=== PATIENT | male | born 1960 | race Caucasian/White ===

== ENCOUNTER → 2022-11-15 | Outpatient (CLI) | payer BC, SELFPAY ==
--- NOTE | 2022-11-15 10:30 | RAD_ITS ---
STUDY: X-RAY - ORBITS REASON FOR EXAM: Male, 61 years old. HX METAL TO EYE PRE MRI TECHNIQUE: 2 view(s) of the orbits were obtained. COMPARISON: None. FINDINGS: Normal bilateral orbits without a metallic orbital foreign body. Normal visualized facial bones. Normal paranasal sinuses. The soft tissue structures are unremarkable. RAD/Orbits for Foreign Body IMPRESSION: No demonstrated metallic orbital foreign body. The patient is cleared for an MRI examination. Electronically Signed: Kris Campos MD at 10:45 EDT ,
--- NOTE | 2022-11-15 13:33 | MRI_ITS ---
STUDY: MRI BRAIN WITHOUT CONTRAST (ATTENTION INTERNAL AUDITORY CANALS - I.A.C.''s) REASON FOR EXAM: Male, 61 years old. ASYMMETRIC RT HEARING LOSS TECHNIQUE: Standardized multiplanar fat and water weighted pulse sequences were obtained. COMPARISON: None. FINDINGS: Normal bilateral internal auditory canals. There is no demonstrated intracanalicular or cisternal vestibular schwannoma (acoustic neuroma) on this unenhanced examination. Normal visualized bilateral cochlea, vestibules and semicircular canals. Normal bilateral mastoid air cells. No cerebellar pontine angle mass or cyst is seen. There is no demonstrated Mondini''s malformation. Note vestibular abnormalities are seen. There is no demonstrated abnormal enlargement or enhancement of the seventh or eighth IAC nerves. The bilateral mastoid air cells are clear. Normal midbrain, gisele and medulla. Normal cerebellum. Normal basal cisterns. Normal size of the ventricles and extra-axial spaces for the patient''s age. There are a limited number of small white matter hyperintensities, distributed throughout the deep white matter tracts of the cerebral hemispheres, consistent with mild chronic white matter ischemic changes. There is no evidence for recent intracranial ischemia or other cause of cytotoxic edema on diffusion weighted imaging (DWI). Normal T2* images of the brain without demonstrated susceptibility artifact. There is no demonstrated hemosiderin stain. There are no demyelinating plagues of the supratentorial brain, brainstem or cerebellum. There are no findings suspicious for multiple sclerosis (MS). There are no focal brain parenchymal lesions or abnormally enhancing lesions of the brain parenchyma. There is no abnormal thickening or enhancement of the meninges or dura or skull. Normal bilateral basal ganglia. Normal thalami. There is no extra-axial fluid accumulation. Normal flow voids within the major intracranial circulation suggesting patency by spin echo criteria. Normal sella turcica, pituitary gland, infundibular stalk, optic chiasm and hypothalamus. Normal tectal plate and pineal gland. No demonstrated orbital abnormality, within the constraints of a routine brain study. Normal visualized paranasal sinuses. Normal calvarium and skull base. Normal visualized soft tissue structures. MRI/Brain W/WO Contrast IMPRESSION: 1. Normal unenhanced MRI of the bilateral internal auditory canals (I.A.C''s). 2. Mild chronic ischemic changes of the brain, as described above. 3. There are no focal brain parenchymal lesions or abnormally enhancing lesions of the brain parenchyma. There is no abnormal thickening or enhancement of the meninges or dura or skull. Electronically Signed: Reji Jose MD at 15:41 EDT ,
[2022-11-15 14:15] LABS: EGFR FINGERSTICK > 60.0000 mL/min (>60)
== END | disposition home or self-care (01) ==
LOC: MRI 10:31
PROVIDERS: PCP Nurse Practitioner Primary Care; Referring Provider Otolaryngology; Visit Provider Otolaryngology
DX: Z01.818 Encounter for other preprocedural examination (principal); H91.91 Unspecified hearing loss, right ear
CPT/HCPCS: 70030; 70553; A9575